=== PATIENT | female | born 1965 | race American Indian/Alaskan Native ===

== ENCOUNTER 2016-10-25 20:45 | Emergency (ER) | payer MEDICAID ==
[2016-10-25 22:02] VITALS: RESP 16; O2SAT 97
--- NOTE | 2016-10-25 22:53 | C.PDOC ---
History Of Present Illness 51 year old patient presents to the ED requesting detox from heroin and alcohol. Patient admits he drinks alcohol daily and uses 6 bags of heroin daily. Patient currently denies nausea, vomiting, shortness of breath, suicidal ideation, homicidal ideation or any other complaints. Chief Complaint (Nursing): Substance Abuse History Per: Patient History/Exam Limitations: intoxication Onset/Duration Of Symptoms: Other Current Symptoms Are (Timing): Still Present Suicide/Self Injury Attempted (Context): None Modifying Factor(s): Alcohol, Other (heroin) Severity: None Pain Scale Rating Of: 0 Recent travel outside of the [place]: No Past Medical History Reviewed: Historical Data, Nursing Documentation, Vital Signs Vital Signs: Last Vital Signs Temp 98.3 F 10/25/16 21:59 Pulse 90 10/25/16 21:59 Resp 16 10/25/16 21:59 BP 105/65 10/25/16 21:59 Pulse Ox 97 10/25/16 23:19 Family History: States: Unknown Family Hx - Social History Hx Alcohol Use: Yes Hx Substance Use: Yes - Immunization History Hx Tetanus Toxoid Vaccination: Yes Hx Influenza Vaccination: Yes Hx Pneumococcal Vaccination: Yes Review Of Systems Except As Marked, All Systems Reviewed And Found Negative. Constitutional: Positive for: Other (detox) Respiratory: Negative for: Shortness of Breath Gastrointestinal: Negative for: Nausea, Vomiting Psych: Negative for: Suicidal ideation Physical Exam - Physical Exam Appears: Non-toxic, No Acute Distress Skin: Warm, Dry Head: Atraumatic, Normacephalic Neck: Normal ROM, Supple Chest: Symmetrical Cardiovascular: Rhythm Regular Respiratory: No Accessory Muscle Use Extremity: Normal ROM Neurological/Psych: Oriented x3 ED Course And Treatment O2 Sat by Pulse Oximetry: 97 (room air) Pulse Ox Interpretation: Normal Progress Note: Case discussed with Crisis who will evaluate the patient at bedside. Disposition Counseled Patient/Family Regarding: Diagnosis - Disposition Referrals: at [facility] [Outside] Disposition: HOME/ ROUTINE Disposition Time: 23:47 Condition: STABLE Instructions: Narcotic Abuse (ED), Abuse of Alcohol (ED) - POA Present On Arrival: None - Clinical Impression Clinical Impression: Drug abuse, Alcohol abuse - Scribe Statement The provider has reviewed the documentation as recorded by the Scribe Dorothy Ramirez Provider Attestation: All medical record entries made by the Scribe were at my direction and personally dictated by me. I have reviewed the chart and agree that the record accurately reflects my personal performance of the history, physical exam, medical decision making, and the department course for this patient. I have also personally directed, reviewed, and agree with the discharge instructions and disposition.
[2016-10-26 01:41] VITALS: PULSE 76; TEMP 97.6
[2016-10-26 01:42] VITALS: BP 127/76
== END 2016-10-26 00:30 | disposition home or self-care (01) ==
LOC: C.ER 20:45
DX: F19.10 Other psychoactive substance abuse, uncomplicated (principal); F10.10 Alcohol abuse, uncomplicated; Y90.9 Presence of alcohol in blood, level not specified

== ENCOUNTER 2016-10-26 12:58 | Inpatient (IN) | payer MEDICAID ==
--- NOTE | 2016-10-26 14:21 | C.PDOC ---
History Of Present Illness A 51 year old female presents to the emergency room requesting detox. Patient has a history of Heroine and ETOH abuse. Patient admits to last using both yesterday. Patient denies any active complaints at this time. Time Seen by Provider: 10/26/16 14:02 Chief Complaint (Nursing): Substance Abuse History Per: Patient History/Exam Limitations: no limitations Onset/Duration Of Symptoms: Hrs Current Symptoms Are (Timing): Still Present Suicide/Self Injury Attempted (Context): None Modifying Factor(s): Alcohol, Other (Heroine) Severity: None Associated Symptoms: denies: Depression, Suicidal Thoughts, Suicidal Plan Recent travel outside of the [place]: No Past Medical History Reviewed: Historical Data, Nursing Documentation, Vital Signs Vital Signs: Last Vital Signs Temp 98 F 10/26/16 18:05 Pulse 72 10/26/16 18:05 Resp 18 10/26/16 18:05 BP 154/89 H 10/26/16 18:05 Pulse Ox 98 10/26/16 18:05 Family History: States: Unknown Family Hx - Social History Hx Alcohol Use: Yes Hx Substance Use: Yes - Immunization History Hx Tetanus Toxoid Vaccination: Yes Hx Influenza Vaccination: Yes Hx Pneumococcal Vaccination: Yes Review Of Systems Except As Marked, All Systems Reviewed And Found Negative. Constitutional: Positive for: Other (Requesting detox for ETOH and heroine abuse ). Negative for: Fever, Chills Cardiovascular: Negative for: Chest Pain Respiratory: Negative for: Shortness of Breath Gastrointestinal: Negative for: Nausea, Vomiting, Diarrhea Physical Exam - Physical Exam Appears: Non-toxic Skin: Warm, Dry, No Rash Head: Atraumatic, Normacephalic Eye(s): bilateral: Normal Inspection Oral Mucosa: Moist Cardiovascular: Rhythm Regular Respiratory: Normal Breath Sounds, No Rales, No Rhonchi, No Wheezing Gastrointestinal/Abdominal: Soft, No Tenderness, No Guarding, No Rebound Extremity: Normal ROM, No Tenderness Neurological/Psych: Oriented x3, Normal Speech, Normal Cognition ED Course And Treatment - Laboratory Results Result Diagrams: 10/26/16 14:35 10/26/16 14:35 O2 Sat by Pulse Oximetry: 98 Medical Decision Making Medical Decision Making: Patient has been medically cleared for detox bed. Disposition - Disposition Disposition: HOSPITALIZED Disposition Time: 02:00 Condition: GOOD - Clinical Impression Clinical Impression: Drug abuse, Alcohol abuse, Alcohol use disorder - Scribe Statement The provider has reviewed the documentation as recorded by the Scribe Krystian Wilhelm All medical record entries made by the Scribe were at my direction and personally dictated by me. I have reviewed the chart and agree that the record accurately reflects my personal performance of the history, physical exam, medical decision making, and the department course for this patient. I have also personally directed, reviewed, and agree with the discharge instructions and disposition. Decision To Admit - Pt Status Changed To: Hospital Disposition Of: Inpatient - Admit Certification Admit to Inpatient:: After my assessment, the patient will require hospitalization for at least two midnights. This is because of the severity of symptoms shown, intensity of services needed, and/or the medical risk in this patient being treated as an outpatient. - InPatient: Physician Admission Certification: I certify that this patient requires 2 or more midnights of care for the following reason:: pt needs detox - . Bed Request Type: Detox Admitting Physician: Robert Enciso Patient Diagnosis: Drug abuse, Alcohol abuse, Alcohol use disorder
[2016-10-26 14:50] LABS: BASO % 0.5 % (0.0-2.0); EOS # 0.1 K/uL (0.0-0.7); EOS % 0.9 % (0.0-4.0); HEMATOCRIT 41.9 % (34.0-47.0); LYMPH # 2.6 K/uL (1.0-4.3); LYMPH % 41.4 % (20.0-40.0); MEAN CELL VOLUME 99.8 fL (81.0-99.0); MEAN CORPUSCULAR HEMOGLOBIN 32.4 pg (27.0-31.0); MEAN CORPUSCULAR HGB CONC 32.4 g/dL (33.0-37.0); MEAN PLATELET VOLUME 9.6 fL (7.2-11.7); MONO # 0.5 K/uL (0.0-0.8); MONO % 7.8 % (0.0-10.0); RED CELL DISTRIBUTION WIDTH 15.8 % (11.5-14.5); WHITE BLOOD COUNT 6.3 K/uL (4.8-10.8)
[2016-10-26 14:51] LABS: CHLORIDE 99 mmol/L (98-107); SODIUM 143 mmol/L (132-148)
[2016-10-26 14:52] LABS: POTASSIUM 3.5 mmol/L (3.6-5.2)
[2016-10-26 14:54] LABS: ALB/GLOB RATIO 1.1 (1.0-2.1); AST/SGOT 38 U/L (14-36); BILIRUBIN,TOTAL 0.6 mg/dL (0.2-1.3); CARBON DIOXIDE 33 mmol/L (22-30); GFR AFRICAN-AMERICAN > 60; TOTAL PROTEIN 7.8 g/dL (6.3-8.3)
[2016-10-26 14:55] LABS: RBC URINE 7 /hpf (0-3); URINE BACTERIA RARE (<OCC); URINE BILIRUBIN NEGATIVE (NEGATIVE); URINE COLOR Amber (YELLOW); URINE GLUCOSE (UA) NORMAL (Normal); URINE KETONE TRACE mg/dL (NEGATIVE); URINE LEUKOCYTE ESTERASE 2+ Leu/uL (Negative); URINE PROTEIN 1+ mg/dL (NEGATIVE); WBC URINE 5 /hpf (0-5)
[2016-10-26 14:56] LABS: ALCOHOL SERUM 112 mg/dl (0-10); ALKALINE PHOSPHATASE 53 U/L (38-126); ALT/SGPT 27 U/L (9-52); BLOOD UREA NITROGEN 7 mg/dL (7-17); CALCIUM 8.6 mg/dl (8.6-10.4); GLUCOSE,RANDOM 73 mg/dL (65-105)
[2016-10-26 15:01] LABS: URINE BLOOD 1+ (NEGATIVE)
[2016-10-26] MEDS ORDERED: Buprenorphine Hydrochloride 2 mg SL ONE ×2 (18:10→19:39)
[2016-10-26] MEDS ORDERED: Aluminum Hydroxide/Magnesium Hydroxide Susp (30 mL) PO PRN (19:21)
[2016-10-27] MEDS: Multiple Vitamins Tab PO SCH (11:25)
[2016-10-27] MEDS: Buprenorphine Hydrochloride 2 mg SL SCH (11:25)
--- NOTE | 2016-10-28 01:18 | PCM.PYCHPN ---
Psychiatric Progress Note - Psychiatric Progress Note Patient seen today, length of contact: 17 min Patient Chief Complaint: i hurt Problems Identified/Issues Discussed: withdrawalsymptoms including yawning, tearing, tremors no appetite Post Acute withdrawal syndrome Medical Problems: nothing acute Diagnostic Results: reviewed DSM 5 Symptoms Update: rhinorrhra tremors decreased appetite Medication Change: Yes (subutex taper) Medical Record Reviewed: Yes Mental Status Examination - Cognitive Function Orientation: Person, Place, Situation, Time Memory: Intact Attention: Poor Concentration: WNL Association: WNL Fund of Knowledge: WNL - Mood Mood: Anxious - Affect Affect: Constricted - Speech Speech: Appropriate - Formal Thought Process Formal Thought Process: No Impairment - Suicidal Ideation Suicidal Ideation: No - Homicidal Ideation Homicidal Ideation: No Goal/Treatment Plan - Goal/Treatment Plan Need for Continued Stay: Remain at risks for inpatient hospitalization, Discharge may exacerbated symptoms Progress Toward Problem(s) and Goals/Treatment Plan: opioid withdrawal insomnia opioid use disorder increased understanding of how substance abuse can take over one's life Estimated Date of D/C: 10/29/16 - Smoking Cessation Smoking Cessation Initiated: No
[2016-10-28] MEDS: Multiple Vitamins Tab PO SCH (09:28)
[2016-10-28] MEDS: Buprenorphine Hydrochloride 2 mg SL SCH (09:29)
[2016-10-28 15:51] VITALS: RESP 18
--- NOTE | 2016-10-28 20:45 | PCM.PSYCH ---
Initial Psychiatric Evaluation - Initial Psychiatric Evaluation Legal Status: Capacity Chief Complaint (in patient's own words): Iwant to stop hurting! Patient's Reaction to Hospitalization: I am glad i am here History of Present Illness and Precipitating Events: Pt is 50 year old black, living as female who suffers from heroin and alcohol use disorder. Pt started using heroin about 2 tears ago. She states she was in the wrong place at the wrong timeShewas using about 6 bags a day and was snorting. She starteddrinking alcohol age 18 it became a problem in her 31s after her mother She used to drink VSOP now she drinks several fire balls a day. She denies use of cannabis, cocaine, benzos or hallucinogenics. There is no family or psychiatric history Her parents are . She has 3 older sisters and 1 older brother. She has n o history. She went up to the 11th grade. She works for [employer]. 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 She has no psychiatric history. Current Medications: Active Medications Generic Name Dose Route Start Last Admin Trade Name Freq PRN Reason Stop Dose Admin Al Hydrox/Mg Hydrox/Simethicone 30 ml 10/26/16 19:21 Maalox 30 Ml PO TID PRN Indigestion / Heartburn Buprenorphine HCl 4 mg 10/27/16 10:54 10/28/16 09:29 Subutex SL 10/30/16 10:53 6 mg DAILY ABUNDIO Administration Taper Chlordiazepoxide 25 mg 10/27/16 00:00 10/28/16 18:42 Librium PO 10/30/16 23:59 25 mg TID ABUNDIO Administration Taper Chlordiazepoxide 25 mg 10/26/16 19:55 10/26/16 20:05 Librium PO 25 mg Q4H PRN Administration Alcohol Withdrawal Clonidine HCl 0.1 mg 10/26/16 19:21 10/27/16 00:13 Catapres PO 0.1 mg Q8 PRN Administration COWS Score More or Equal to 5 Folic Acid 1 mg 10/27/16 10:00 10/28/16 09:29 Folic Acid PO 1 mg DAILY ABUNDIO Administration Hydroxyzine HCl 50 mg 10/26/16 19:21 Atarax PO Q6H PRN Anxiety Ibuprofen 600 mg 10/26/16 19:21 Motrin Tab PO Q6H PRN Pain, moderate (4-7) Loperamide HCl 2 mg 10/26/16 19:21 Imodium PO Q8 PRN Diarrhea Multivitamins 1 tab 10/27/16 10:00 10/28/16 09:28 Hexavitamin PO 1 tab DAILY ABUNDIO Administration Ondansetron HCl 4 mg 10/26/16 19:21 Zofran Tab PO Q8 PRN Nausea/Vomiting Thiamine HCl 100 mg 10/27/16 10:00 10/28/16 09:29 Vitamin B1 Tab PO 100 mg DAILY ABUNDIO Administration Trazodone HCl 100 mg 10/27/16 22:00 10/27/16 22:54 Desyrel PO Not Given HS ABUNDIO Trazodone HCl 100 mg 10/28/16 00:28 10/28/16 00:47 Desyrel PO 100 mg HS PRN Administration Insomnia Past Psychiatric History - Past Psychiatric History Previous Treatment History: None Pertinent Medical Hx (Current Medical&Sleep Prob, Allergies): Allergies Allergy/AdvReac Type Severity Reaction Status Date / Time No Known Allergies Allergy Verified 10/26/16 13:13 No Known Home Med 10/25/16 Review of Systems - Constitutional Constitutional: Sweats, Malaise - EENT Eyes: UNREMARKABLE Ears: UNREMARKABLE Nose/Mouth/Throat: UNREMARKABLE - Breasts Breasts: UNREMARKABLE - Cardiovascular Cardiovascular: UNREMARKABLE - Respiratory Respiratory: UNREMARKABLE - Gastrointestinal Gastrointestinal: Cramping, Diarrhea, Nausea, Vomiting - Genitourinary Genitourinary: UNREMARKABLE - Reproductive: Female Reproductive:Female: UNREMARKABLE - Menstruation Menstruation: UNREMARKABLE - Musculoskeletal Musculoskeletal: UNREMARKABLE - Integumentary Integumentary: UNREMARKABLE - Neurological Neurological: UNREMARKABLE - Psychiatric Psychiatric: UNREMARKABLE - Endocrine Endocrine: UNREMARKABLE Mental Status Examination - Personal Presentation Personal Presentation: Looks stated age - Affect Affect: Constricted - Motor Activity Motor Activity: Calm - Reliability in Providing Information Reliability in Providing Information: Good - Speech Speech: Organized, Coherent - Mood Mood: Anxious - Formal Thought Process Formal Thought Process: No Impairment - Obsessions/Compulsions Obsessions: No Compulsions: No - Cognitive Functions Orientation: Person, Place, Situation, Time Attention/Concentration: Attentive Abstract Thinking: As evidence by abstract perception of proverbs Estimate of Intelligence: Average Judgement: Intact, as evidence by: Good judgement Memory: Recent intact, as evidence by: Ability to recall events of the day, Remote intact, as evidenced by: Ability to recall historical events - Risk Risk: Seizure, Withdrawal - Strength & Assets Inventory Strength & Assets Inventory: Intelligence, Family support, Education, Employment history DSM 5 DX - Recommended/Plan of Treatment Treatment Recommendations and Plan of Treatment: opioid use disorder- severe opioid withdrawa opioid withdrawal Subutex opioid use disorder group milieu and recreational therapy [place] CBT individual supportive psychotherapy Projected ELOS: 5 days Prognosis: good with treatment Discharge Plan and Discharge Criteria: no acute withdrawal symptoms - Smoking Cessation Smoking Cessation Initiated: No
--- NOTE | 2016-10-28 20:56 | PCM.PYCHPN ---
Psychiatric Progress Note - Psychiatric Progress Note Patient seen today, length of contact: 17 min Patient Chief Complaint: I am starting to feel much better Problems Identified/Issues Discussed: withdrawal symptoms including yawning, tearing, tremors no appetite Post Acute withdrawal syndrome Medical Problems: nothing acute Diagnostic Results: reviewed DSM 5 Symptoms Update: less nausea, less body aches Medication Change: Yes (subutex taper) Medical Record Reviewed: Yes Mental Status Examination - Cognitive Function Orientation: Place, Situation, Time Memory: Intact Attention: WNL Concentration: WNL Association: WNL Fund of Knowledge: WNL - Mood Mood: Anxious - Affect Affect: Constricted - Formal Thought Process Formal Thought Process: No Impairment - Suicidal Ideation Suicidal Ideation: No - Homicidal Ideation Homicidal Ideation: No Goal/Treatment Plan - Goal/Treatment Plan Need for Continued Stay: Discharge may exacerbated symptoms Progress Toward Problem(s) and Goals/Treatment Plan: opioid use disorder- severe opioid withdrawa opioid withdrawal Subutex opioid use disorder group milieu and recreational therapy [place] CBT individual supportive psychotherapy Estimated Date of D/C: 10/29/16 - Smoking Cessation Smoking Cessation Initiated: No
--- NOTE | 2016-10-29 08:59 | PCM.PYCHDC ---
Mental Status Examination - Mental Status Examination Orientation: Person, Place, Situation, Time Memory: Intact Mood: Anxious Affect: Constricted Attention: WNL Concentration: Poor Association: WNL Fund of Knowledge: Poor Formal Thought Process: No Impairment Suicidal Ideation: No Current Homicidal Ideation?: No Discharge Summary - Discharge Note Reason for Hospitalization: Heroin and alcohol detox Consultations:: List each consultation separately and include: 1. Reason for request. 2. Findings. 3. Follow-up Summary of Hospital Course include:: 1. Description of specific treatment plan utilized for patients during their course of treatmen. 2. Summarize the time- course for resolution of acute symptoms and/or regressed behaviors. 3. Describe issues identified and worked on during hospitalization. 4. Describe medication utilized. 5. Describe medical problems identified and treated. 6. Reassessment of suicide risk Summary of Hospital Course: The pt was admitted and started on treatment with psychotherapy, support, psychoeducation and medications. PA and CBT used briefly All the risks and benefits of medications are discussed and the patient understood and agreed. She came on a Saturday and on Saturday when she had 1-2 more days of treatment she decided to leave abruptly. She claimed she cannot lose her job and that she was "fine." She added that she would now tell her BF to come to detox. Risks of leaving early discussed, incl. relapse, OD and even - Final Diagnosis (DSM 5) Condition upon Discharge: GOOD DSM 5: opioid use disorder- severe opioid withdrawal Alcohol withdrawal Alcohol use d/o - severe Disposition: AGAINST MEDICAL ADVICE Follow-up Treatment Plan: Use relapse prevention skills Return to ER or call 911 if suicidal, homicidal or symptoms relapse. Stay away from stress, alcohol and drugs. Attend a program in your town Consider MAT, santino. Naltrexone ER
[2016-10-29] MEDS: Multiple Vitamins Tab PO SCH (09:53)
[2016-10-29] MEDS: Buprenorphine Hydrochloride 2 mg SL SCH (09:53)
[2016-10-29 10:12] VITALS: BP 131/85; PULSE 68; TEMP 97.6; O2SAT 99
== END 2016-10-29 10:05 | disposition left against medical advice (07) | DRG 743 ==
LOC: C.ER 12:58 → C.7D 16:00
PROVIDERS: ADMIT Psychiatry & Neurology Psychiatry; ATTEND Psychiatry & Neurology Psychiatry
PROC: HZ2ZZZZ Detoxification Services for Substance Abuse Treatment (ICD-10-PCS; principal; 2016-10-26)
PROC: HZ42ZZZ Group Counseling for Substance Abuse Treatment, Cognitive-Behavioral (ICD-10-PCS; 2016-10-26)
PROC: HZ32ZZZ Individual Counseling for Substance Abuse Treatment, Cognitive-Behavioral (ICD-10-PCS; 2016-10-26)
PROC: HZ59ZZZ Individual Psychotherapy for Substance Abuse Treatment, Supportive (ICD-10-PCS; 2016-10-26)
DX: F11.23 Opioid dependence with withdrawal (principal); F10.230 Alcohol dependence with withdrawal, uncomplicated; Y90.5 Blood alcohol level of 100-119 mg/100 ml; J34.89 Other specified disorders of nose and nasal sinuses; R25.1 Tremor, unspecified; G47.00 Insomnia, unspecified

== ENCOUNTER 2018-07-03 13:41 | Emergency (ER) | payer MEDICAID ==
--- NOTE | 2018-07-03 14:13 | C.PDOC ---
History Of Present Illness 53 y/o female presents to the ED requesting detox from heroin. Last used yesterday. She denies any suicidal or homicidal ideation. No withdrawal symptoms at present. Patient offers no other complaints. Time Seen by Provider: 07/03/18 14:07 Chief Complaint (Nursing): Substance Abuse History Per: Patient History/Exam Limitations: no limitations Onset/Duration Of Symptoms: Days Current Symptoms Are (Timing): Still Present Associated Symptoms: denies: Suicidal Thoughts, Suicidal Plan Involuntary Hold By: None Past Medical History Reviewed: Historical Data, Nursing Documentation, Vital Signs - Medical History PMH: Denies: Diabetes, Hepatitis, HIV, HTN, Seizures, Sexually Transmitted Disease Other Surgeries: Right knee surgery - [employer] Procedures DETOXIFICATION SERVICES FOR SUBSTANCE ABUSE TREATMENT (10/26/16) GROUP SENIOR SALES OPERATIONS ANALYST FOR SUBSTANCE ABUSE, COGNITIVE BEHAVIORAL (10/26/16) INDIV SENIOR SALES OPERATIONS ANALYST FOR SUBSTANCE ABUSE, COGNITIVE BEHAVIORAL (10/26/16) INDIV PSYCHOTHERAPY FOR SUBSTANCE ABUSE TREATMENT, SUPPORT (10/26/16) Family History: States: Unknown Family Hx - Social History Hx Tobacco Use: Yes Hx Alcohol Use: Yes Hx Substance Use: Yes - Immunization History Hx Tetanus Toxoid Vaccination: Yes Hx Influenza Vaccination: Yes Hx Pneumococcal Vaccination: Yes Review Of Systems Constitutional: Negative for: Fever Cardiovascular: Negative for: Palpitations Respiratory: Negative for: Shortness of Breath Gastrointestinal: Negative for: Nausea, Vomiting Neurological: Negative for: Weakness, Dizziness Psych: Positive for: Other (Heroin dependence). Negative for: Suicidal ideation, Withdrawal Physical Exam - Physical Exam Appears: Non-toxic, No Acute Distress Skin: Warm, Dry Head: Atraumatic, Normacephalic Eye(s): bilateral: Normal Inspection Neck: Normal ROM Chest: Symmetrical Respiratory: No Accessory Muscle Use, Other (Speaking in full sentences) Extremity: Bilateral: Atraumatic, Normal ROM (x 4) Pulses: Left Dorsalis Pedis: Normal, Right Dorsalis Pedis: Normal Neurological/Psych: Oriented x3 Gait: Steady ED Course And Treatment O2 Sat by Pulse Oximetry: 95 (RA) Pulse Ox Interpretation: Normal Medical Decision Making Medical Decision Making: Plan: Patient informed there are no detox beds available. Crisis provided outpatient resources. Disposition - Disposition Disposition: HOME/ ROUTINE Disposition Time: 14:12 Condition: GOOD Additional Instructions: Return if worsened. Instructions: Drug Abuse and Drug Addiction (DC) Forms: [employer] (Kinyarwanda) - Clinical Impression Clinical Impression: Drug abuse, Drug dependence - PA / RESEARCH DIETITIAN / Resident Statement MD/DO has reviewed & agrees with the documentation as recorded. - Scribe Statement The provider has reviewed the documentation as recorded by the Scribrodri Champagne All medical record entries made by the Rahelibe were at my direction and personally dictated by me. I have reviewed the chart and agree that the record accurately reflects my personal performance of the history, physical exam, medical decision making, and the department course for this patient. I have also personally directed, reviewed, and agree with the discharge instructions and disposition.
[2018-07-03 14:23] VITALS: BP 137/84; PULSE 67; RESP 15; TEMP 99; O2SAT 95
== END 2018-07-03 14:55 | disposition home or self-care (01) ==
LOC: C.ER 13:41
DX: F11.20 Opioid dependence, uncomplicated (principal)